=== PATIENT | female | born 1985 | race Caucasian/White ===

== ENCOUNTER 2019-09-29 12:43 | Emergency (ER) | payer OTHER ==
[~2019-09-29] VITALS: Ht 165.1 cm; Wt 53.2 kg
[2019-09-29 12:49] VITALS: BP 132/64
--- NOTE | 2019-09-29 13:03 | NUR ---
THIS IS A 34 YO F W/ C/O URINARY FREQUENCY/URGENCY AND PAIN W/ URINATION SINCE THIS MORNING. PT REPORTS HX OF UTI'S. PT AMBULATED TO THE BR W/ A STEADY GAIT. URINE COLLECTED. PT RESTING ON GURNEY W/ CALL LIGHT IN VINNY DUONG NADN. IN ROOM FOR ED EVAL.
[2019-09-29] MEDS ORDERED: PHENAZOPYRIDINE 200 MG TABLET ONE (13:08)
[2019-09-29] MEDS ORDERED: CEFDINIR 300 MG CAPSULE ONE (13:08)
--- NOTE | 2019-09-29 13:12 | NUR ---
PT MEDICATED PER EMAR.
[2019-09-29 13:21] LABS: MICROSCOPIC INDICATED
[2019-09-29] MEDS ORDERED: CEFDINIR 300 MG CAPSULE PO ONE (13:30)
[2019-09-29] MEDS ORDERED: PHENAZOPYRIDINE 200 MG TABLET PO ONE (13:30)
== END 2019-09-29 13:58 | disposition home or self-care (01) ==
LOC: ED 13:51
DX: N30.01 Acute cystitis with hematuria (principal); R30.0 Dysuria; R39.15 Urgency of urination
CPT/HCPCS: 81001; 87077; 87086; 87186; 99283